=== PATIENT | male | born 1950 | race Caucasian/White ===

== ENCOUNTER 2017-03-09 00:52 | Inpatient (IN) ==
[2017-03-09 01:27] LABS: MANUAL DIFF NEEDED? NO
[2017-03-09 01:29] LABS: BASO% 0.2 % (0.0-0.8); EOS# 0.13 X1000 (0.0-0.7); HEMATOCRIT 50.5 % (42.0-52.0); HEMOGLOBIN 17.6 g/dL (14.0-18.0); IMM GRAN# 0.03 X1000 (0.0-0.04); IMM GRAN% 0.2 % (0.0-0.5); LYMPH# 1.26 X1000 (1.2-3.4); LYMPH% 9.3 % (20.5-51.1); MCH 32.3 PG (27-31); MCHC 34.9 g/dL (33-37); MCV 92.7 FL (81-99); MONO# 1.21 X1000 (0.11-0.59); MONO% 8.9 % (1.7-9.3); MPV 10.3 FL (7.4-10.4); NEUT% 80.4 % (42.2-75.2); PLT 247 X1000 (130-400); RBC 5.45 XMIL (4.7-6.1)
[2017-03-09] MEDS ORDERED: ZOFRAN IV ONE (01:33)
[2017-03-09] MEDS ORDERED: MORPHINE IV ONE ×2 (01:33→02:22)
[2017-03-09 01:42] LABS: AGAP 13; ALBUMIN 4.4 g/dL (3.5-5.0); ALKALINE PHOSPHATASE 76 U/L (32-122); AMYLASE 77 U/L (20-200); BUN 18 mg/dL (8-22); CALCIUM 9.3 mg/dL (8.8-10.2); CHLORIDE 100 mmol/L (98-107); COSMO 282; GOT 25 U/L (10-34); GPT 24 U/L (10-44); LIPASE 16 U/L (13-60); POTASSIUM 4.2 mmol/L (3.5-5.1); SODIUM 139 mmol/L (136-145); TCO2 26 mmol/L (25-35); TOTAL BILIRUBIN 0.41 mg/dL (0.20-1.00); TOTAL PROTEIN 7.3 g/dL (6.3-8.3)
[2017-03-09 02:06] LABS: URINE CULTURE NEEDED? NO; URINE MICRO REVIEW NEEDED? NO; URINE SOURCE CLEAN CATCH
[2017-03-09 02:08] LABS: BILIRUBIN URINE NEGATIVE (NEGATIVE); BLOOD URINE LARGE (NEGATIVE); COLOR YELLOW; GLUCOSE URINE NEGATIVE (NEGATIVE); LEUKOCYTES URINE NEGATIVE (NEGATIVE); NITRITE URINE NEGATIVE (NEGATIVE); PH URINE 5.5; PROTEIN URINE TRACE mg/dL (NEGATIVE); SP GRAVITY URINE 1.021; TURBIDITY URINE CLEAR (CLEAR); UROBILINOGEN URINE NORMAL (NORMAL)
[2017-03-09 02:10] LABS: UR EPITHELIAL CELLS <10 /HPF (<10); URINE BACTERIA NEGATIVE /HPF; URINE RBC TNTC /HPF (<10); URINE WBC <10 /HPF (<10)
--- NOTE | 2017-03-09 03:27 | PROVIDER DOCUMENTATION ---
This chart was entered by Alice Figueredo Scribe, acting as scribe for Rashad Valverde MD. HPI-Abdominal Pain/GI Problem - General Chief Complaint: Abdominal Pain Stated Complaint: ABD PAIN Time Seen by Provider: 03/09/17 01:12 Source: patient Allergies/Adverse Reactions: Patient Allergies Allergy/AdvReac Type Severity Reaction Status Date / Time No Known Allergies Allergy Verified 03/09/17 01:00 Home Medications: Home Medication List Medication Instructions Recorded Confirmed Last Taken Type NK [No Home Medications] 03/09/17 03/09/17 Unknown History - History of Present Illness-ABD Nature of Presenting Problems: 67 year old M presents to the ED with a cc of ABD pain and nausea with an onset of yesterday around 1600. Pt states that pain has since gotten worse. PT denies vomiting and diarrhea. PT states last bowel movement was on 03/07. PT has a hx of diverticulitis, ABD abscess, and bowel perforation. Abdominal Pain Onset Location: reports: LUQ, LLQ Pain Radiation: reports: RLQ, periumbilical Quality of Pain: reports: aching Severity in ED: reports: moderate Onset/Duration: reports: last night (1600) Timing: reports: still present, getting worse Associated Symptoms: reports: nausea Bruising or Bleeding Gums?: No Similar Symptoms Previously?: No Recently seen or treated by another doctor?: No Review of Systems - Adult - REVIEW OF SYSTEMS - ADULT Constitutional: denies: chills, fever Eyes: reports: no symptoms reported Ears, Nose, Mouth & Throat: reports: no symptoms reported Cardiovascular: denies: chest pain, palpitations Respiratory: denies: cough, shortness of breath Gastrointestinal: reports: abdominal pain, nausea. denies: diarrhea, vomiting Genitourinary: reports: no symptoms reported Musculoskeletal: reports: no symptoms reported Integumentary: reports: no symptoms reported Neurological: reports: no symptoms reported Psychiatric: reports: no symptoms reported Endocrine: reports: no symptoms reported Hematologic/Lymphatic: reports: no symptoms reported Allergic/Immunologic: reports: no symptoms reported All Other Systems: Reviewed and Negative Past History - Adult - PAST MEDICAL HISTORY-ADULT Review of Records: reports: Nursing Assessment Review, Medications Reviewed Major Childhood Illnesses: reports: denies history Cardiovascular: reports: HTN Respiratory: reports: COPD - PRIOR SURGERIES/PROCEDURES Surgical/Procedure History: reports: bowel surgery, back/neck, other (nasal surgery) - IMMUNIZATION STATUS Childhood Immunizations: See Nurse Assessment Flu Vaccine: See Nurse Assessment - SOCIAL HISTORY Smoking: non-smoker Substance Use: none/never Alcohol Use Frequency: never Physical Exam-General - PHYSICAL EXAM-ADULT Initial Vital Signs Reviewed: Yes - CONSTITUTIONAL General Appearance: alert, moderate distress - RESPIRATORY Respiratory: chest non-tender, normal breath sounds, wheezing (diffuse) - CARDIOVASCULAR Cardiovascular: normal peripheral pulses, other (split first heart sound) - GASTROINTESTINAL (ABDOMEN) Abdominal Exam: abnormal bowel sounds (borborygmi), distended, tenderness ( generalized) - SKIN Integumentary: diaphoresis - PSYCHIATRIC Psych/Mental Status: normal mood/affect, normal thought content, normal thought process, oriented x 3 Progress - PLAN OF CARE/RESULTS Progress/Plan/Lab Results: Vital Signs - 8 hr 03/09/17 00:55 Temperature 97.6 F Pulse Rate 95 H Respiratory Rate 22 Blood Pressure 178/112 O2 Sat by Pulse Oximetry 95 Orders Category Date Time Status Saline Loc DIRECTED Care 03/09/17 01:03 Active NPO Diet 03/09/17 01:03 Active AMYLASE [CHEM] Stat Lab 03/09/17 01:15 Ordered CBC WITH ELECTRONIC DIFF [HEME] Stat Lab 03/09/17 01:15 Ordered COMPREHENSIVE METABOLIC PANEL [CHEM] Stat Lab 03/09/17 01:15 Ordered LIPASE [CHEM] Stat Lab 03/09/17 01:15 Ordered URINALYSIS W/POSS RFLX CULT [URINALYSIS] Stat Lab 03/09/17 01:03 Uncollected Result Diagrams: 03/09/17 01:12 03/09/17 01:12 Departure - Departure Time of Disposition Decision: 03:26 DIAGNOSIS: Ureterolithiasis Disposition: ADMITTED INPATIENT 09 Certified Medical Emergency: Emergent Condition: Fair Referrals and Follow-Ups: Alejandro Holliday MD [Primary Care Provider] - This chart was documented by the indicated scribe, (Alice Figueredo Scribe) and accurately reflects the services I performed and decisions made by me, Rashad Valverde MD, as attested by the provider's signature.
[2017-03-09] MEDS ORDERED: LABETALOL IV ONE (04:48)
[2017-03-09] MEDS: NICODERM PATCH TD SCH ×2 (05:12→10:17)
[2017-03-09] MEDS ORDERED: DUONEB (A & A) INH PRN (05:33)
[2017-03-09] MEDS ORDERED: NS 1,000 ML IV ONE (05:33)
--- NOTE | 2017-03-09 05:33 | HISTORY AND PHYSICAL ---
PRIMARY CARE PHYSICIAN: Alejandro Holliday MD CHIEF COMPLAINT: Abdominal pain. HISTORY OF PRESENT ILLNESS: This is a 67-year-old male, who presented to the emergency room with complaint of left sided abdominal pain that had an onset around 4 p.m. yesterday which got worse and worse. He denied vomiting or diarrhea or chest pain. Denied any associated symptoms, such as dysuria, hematuria, home, hematochezia, or melena. States that his last bowel movement was on 03/07. He does have a history of diverticulitis and colon resection. A CT scan was obtained which showed 5 mm proximal left ureteral stone with mild hydronephrosis. Also noted increased gaseous distention consistent with ileus. He will be admitted to the medical floor for further evaluation and treatment. PAST MEDICAL HISTORY: 1. Hypertension. 2. Chronic obstructive pulmonary disease. 3. Diverticulitis. 4. Abdominal abscess. PREVIOUS SURGICAL HISTORY: 1. Bilateral foot arch repair. 2. Colon resection. 3. C-spine fusion. 4. Vein stripping for varicose veins. ALLERGIES: No known allergies. HOME MEDICATIONS: None. FAMILY HISTORY: One parent had a cerebrovascular accident, the other had cancer. Both in their 80s. SOCIAL HISTORY: One pack per day smoker. Lives at home with his . Denies alcohol or illicit drugs. REVIEW OF SYSTEMS: Fourteen point review of systems conducted with the patient. Pertinent positives listed above in the HPI. All other systems were reviewed and found to be negative. PHYSICAL EXAMINATION: VITAL SIGNS: Temperature 97.6 degrees, pulse 95, respirations 19, blood pressure 196/110, oxygen saturation 95% on room air. GENERAL: Pleasant 67-year-old male lying in the ER stretcher, in no acute distress. Answers all questions appropriately. HEENT: Head is atraumatic, normocephalic. Pupils equal, round, react to light. Extraocular eye movement intact. Sclerae is anicteric. Conjunctivae is pink. Oral mucosa is dry. NG tube noted in naris. NECK: Supple. Trachea is midline. No jugular venous distention. CARDIAC: S1-S2 appreciated. No murmurs, gallops, or rubs. Regular rhythm. LUNGS: Decreased bilaterally. Mild expiratory wheezing noted throughout the air lewis. No rhonchi, no rales. Symmetrical rise and fall with respirations. ABDOMEN: Soft, somewhat distended. Hyperactive bowel sounds in all 4 quadrants. Mildly tender to palpation. No pulsatile mass. No organomegaly. EXTREMITIES: No clubbing, cyanosis, or edema. SKIN: Warm, dry, and intact. No acute lesions or rash. BACK: Left sided costovertebral angle tenderness. NEUROLOGICAL: Alert and oriented x3. Cranial nerves 2-12 grossly intact. DIAGNOSTIC DATA: 1. CT of the abdomen showed 5 mm proximal left ureteral stone with mild hydronephrosis, as well as an ileus. WBC 13.62, hemoglobin 17.6, hematocrit 50.5, platelet count 247,000. Sodium 139, potassium 4.2, chloride 100, carbon dioxide 26. BUN 18, creatinine 0.9. Glucose 148. Urine large amount of blood, too numerous to count RBCs. ASSESSMENT AND PLAN: 1. A 5 mm proximal stone in the ureter with mild hydronephrosis. Will give IV pain medication and IV normal saline at 100 mL an hour. 2. Ileus. Hold patient NPO. We will give IV pain medicine, IV fluid resuscitation. 3. Hypertension. Patient is not currently taking any medications for his high blood pressure. We will give labetalol 20 mg IV 1 time dose in the emergency room. Continue IV hydralazine 10 mg q.4 hours systolic blood pressure greater than 160. We will evaluate and start on p.o. medications when patient is able to take p.o. 4. Tobacco abuse. Smoking cessation was gone over with the patient. He does state that he wants to quit; however, he has not attempted. We will give 21 mg transdermal Kwesi-Derm patch daily. 5. Chronic obstructive pulmonary disease. The patient is not in exacerbation. Will add DuoNeb's every 2 hours p.r.n. for wheezing. Further recommendations per patient's clinical course. Dictated by RINKU Schneider for Garth Dukes MD cc: RINKU Schneider MD
[2017-03-09] MEDS: PROTONIX IV SCH (06:39)
[2017-03-09] MEDS: SODIUM CHLORIDE 0.9% INJ SCH (06:39)
--- NOTE | 2017-03-09 07:27 | Diag Imaging Result Document ---
PROCEDURE NAME: CT ABD/PELVIS W/ IV CONT ONLY - 03/09/2017 CT ABDOMEN AND PELVIS WITH INTRAVENOUS CONTRAST: A CT dose reduction protocol was used. COMPARISON: 05/27/2013. FINDINGS: There is an obstructing 7 mm left proximal ureter stone. There is moderate left hydronephrosis with slight delay in renal functioning. There are several renal stones bilaterally, otherwise, measuring up to 5 mm. More on the left than the right. There appears to be numerous peripelvic cysts bilaterally. No bowel obstruction or inflammation. There are a few scattered sigmoid colon diverticula. No free air or free fluid. Urinary bladder, prostate, and rectum are normal. The lung bases are clear. Moderate degenerative changes of the thoracolumbar spine. No acute bony lesions. IMPRESSION: Obstructing left proximal ureter stone measuring 7 mm. Moderate left hydronephrosis and delay in renal functioning. Bilateral nephrolithiasis otherwise. MTDD
--- NOTE | 2017-03-09 07:28 | Diag Imaging Result Document ---
PROCEDURE NAME: CHEST/ABD TUBE PLACEMENT - 03/09/2017 AP PORTABLE CHEST AND ABDOMEN AT 0305 HOURS: For NG tube placement. FINDINGS: There is an NG tube with its tip in the fundus of the stomach. Tip in the fundus of the stomach. There is gas and stool in the visualized colon. There is some gaseous dilatation of small bowel loops in the upper abdomen. There is atelectasis over the left base. IMPRESSION: NG tube in the stomach.
--- NOTE | 2017-03-09 07:34 | Diag Imaging Result Document ---
PROCEDURE NAME: CHEST-PORTABLE - 03/09/2017 AP PORTABLE CHEST ERECT AT 0145 HOURS: FINDINGS: There is atelectasis over the left base. There are no previous chest radiographs; however, there were some fibrotic changes in the left base on the CT scan of 05/27/2013. Some of this may be fibrotic therefore. Otherwise, the lungs are clear and the heart and pulmonary vascularity are within normal limits. IMPRESSION: Atelectasis versus fibrosis, left lower lobe.
[2017-03-09] MEDS: MORPHINE IV PRN ×4 (10:03→22:24)
--- NOTE | 2017-03-09 17:37 | Diag Imaging Result Document ---
PROCEDURE NAME: CHEST/ABD TUBE PLACEMENT - 03/09/2017 PORTABLE CHEST/ABDOMEN: COMPARISON: Compared to study performed earlier in the day. FINDINGS: The nasogastric tube has been pulled back. However, it still overlies the stomach. There is at least 5 cm within the stomach.
[2017-03-09] MEDS: ZOFRAN IV PRN (22:24)
[2017-03-10] MEDS: SODIUM CHLORIDE 0.9% INJ SCH (05:21)
[2017-03-10] MEDS: MORPHINE IV PRN (05:22)
[2017-03-10] MEDS: ZOFRAN IV PRN ×2 (05:22→17:20)
[2017-03-10] MEDS: PROTONIX IV SCH (05:22)
[2017-03-10] MEDS: APRESOLINE IV PRN ×2 (06:06→21:00)
[2017-03-10 06:45] LABS: MANUAL DIFF NEEDED? NO
[2017-03-10 06:51] LABS: BASO% 0.2 % (0.0-0.8); EOS# 0.03 X1000 (0.0-0.7); EOS% 0.2 % (0.0-10.0); HEMATOCRIT 49.7 % (42.0-52.0); HEMOGLOBIN 16.6 g/dL (14.0-18.0); IMM GRAN# 0.02 X1000 (0.0-0.04); IMM GRAN% 0.2 % (0.0-0.5); LYMPH# 0.84 X1000 (1.2-3.4); LYMPH% 6.4 % (20.5-51.1); MCHC 33.4 g/dL (33-37); MCV 95.9 FL (81-99); MONO# 1.55 X1000 (0.11-0.59); MONO% 11.8 % (1.7-9.3); MPV 10.1 FL (7.4-10.4); NEUT% 81.2 % (42.2-75.2); PLT 207 X1000 (130-400); RBC 5.18 XMIL (4.7-6.1)
[2017-03-10 07:09] LABS: AGAP 15; BUN 22 mg/dL (8-22); CALCIUM 9.3 mg/dL (8.8-10.2); CHLORIDE 101 mmol/L (98-107); COSMO 290; POTASSIUM 4.3 mmol/L (3.5-5.1); SODIUM 143 mmol/L (136-145); TCO2 27 mmol/L (25-35)
[2017-03-10] MEDS: NICODERM PATCH TD SCH (09:10)
--- NOTE | 2017-03-10 11:04 | Diag Imaging Result Document ---
PROCEDURE NAME: US RENAL 2 (RETROPER) COMPLETE - 03/10/2017 RENAL ULTRASOUND: FINDINGS: The right kidney measures 7.2 x 5.5 x 5.6 cm. Normal renal echogenicity and cortical thickness. No renal stone or hydronephrosis. No renal mass. The left kidney measures 12.2 x 5.3 x 7.0 cm. Normal renal echogenicity and cortical thickness. No renal stone or hydronephrosis. No renal mass. The urinary bladder is moderately distended and appears normal. IMPRESSION: Normal renal ultrasound.
--- NOTE | 2017-03-10 12:41 | Diag Imaging Result Document ---
PROCEDURE NAME: ABDOMEN FLAT/UPRIGHT - 03/10/2017 SUPINE AND UPRIGHT ABDOMEN TWO VIEWS: COMPARISON: 03/09/2017. FINDINGS: A nasogastric tube overlies the stomach. There is stool throughout the colon. No organomegaly. There are several pelvic calcifications. IMPRESSION: Constipation.
[2017-03-10] MEDS ORDERED: GOLYTELY PO ONE (13:35)
[2017-03-10] MEDS: NS 1,000 ML IV SCH ×2 (13:50→23:35)
--- NOTE | 2017-03-10 14:18 | PROGRESS NOTE ---
DATE: 03/10/2017 SUBJECTIVE: Patient reports feeling fine. Reports mild pain in the right flank. Denies any fever, chills. He reports that he has passed 1 kidney stone last night. Pain is intermittent but definitely better in comparing with yesterday. OBJECTIVE: Vital Signs: Temperature 98.6 degrees, heart rate 93, respiratory rate 18, blood pressure 179/75, O2 saturation 92% on 2 L nasal cannula. General Examination: This is a 67-year- old male lying in bed in no acute distress. HEENT: Head is normocephalic, atraumatic. Anicteric sclerae and pale conjunctivae. Mucous membranes moist. Neck: Supple. No JVD noted. No carotid bruits. No lymphadenopathy. No thyromegaly. Cardiovascular: S1, S2 heard. No murmurs, gallops, or rubs. Regular rate and rhythm. Respiratory: Clear bilaterally to auscultation. No work of breathing or using accessory muscles. Abdomen: Soft , a little bit distended but nontender to palpation. Bowel sounds present. No organomegaly. Extremities: No clubbing, cyanosis, edema. Peripheral pulses present in both legs. Neurological: Patient alert, oriented x3. Able to move 4 extremities. Cranial nerves 2 though 12 grossly normal. LABORATORY DATA: Reviewed. ASSESSMENT AND PLAN: 1. Mild hydronephrosis secondary to kidney stone. Patient has report he has passed 1 kidney stone but in CT scan it shows multiple kidney stones. In any case we have repeated a renal ultrasound which did not show any hydronephrosis. At this point we are going to continue with aggressive fluid resuscitation and see we can help remove more stones. 2. Ileus. Actually although in the H and P has been documented ileus the final report from CT scan did not show any. In any case I have ordered abdominal x-ray which of course did not show any ileus and shows some constipation. I ordered to remove NG tube and will provide GoLYTELY orally until he starts moving his bowels. Will start also clear liquid diet and will advance diet as tolerated. 3. Hypertension. Blood pressure is getting high in the range of 170, 190 so we are going to start amlodipine 5 mg 1 tablet p.o. b.i.d. and see how this patient does and of course continue with hydralazine IV p.r.n. 4. Tobacco abuse. Patient has been advised about stopping smoking. 5. Chronic obstructive pulmonary disease. Patient is doing fine and not on any exacerbation. Will continue with home medications. cc: Eriberto Anand MD MTDD
[2017-03-10] MEDS: NORVASC PO SCH (20:58)
[2017-03-11] MEDS: SODIUM CHLORIDE 0.9% INJ SCH (05:11)
[2017-03-11] MEDS: PROTONIX IV SCH (05:11)
[2017-03-11 08:45] VITALS: BP 173/82
[2017-03-11] MEDS: NORVASC PO SCH (09:30)
[2017-03-11] MEDS: NICODERM PATCH TD SCH (09:30)
[2017-03-11] MEDS: NS 1,000 ML IV SCH (09:32)
--- NOTE | 2017-03-13 11:59 | DISCHARGE SUMMARY ---
ADMISSION DATE: 03/09/2017 DISCHARGE DATE: 03/11/2017 CONSULTATIONS: None. PERTINENT PROCEDURES: 1. Abdomen and pelvis CT showed obstructing left proximal ureteral stone measuring 7 mm. Moderate left hydronephrosis delay in renal functioning. Bilateral nephrolithiasis. 2. Renal ultrasound was normal. 3. Abdominal x-ray showed constipation. DISCHARGE DIAGNOSES: 1. Mild hydronephrosis secondary to kidney stone. Patient reported that he passed 1 kidney stone but the CT scan showed multiple stones. Follow up renal ultrasound did not show any hydronephrosis. Patient received aggressive fluid resuscitation. Stable. 2. Ileus. That was ruled out. Just showed constipation. Final CT scan did not show any ileus. Follow up abdominal x-ray showed constipation. Patient was started on GoLYTELY until results and started on a clear liquid diet and was advanced as tolerated. Stable. 3. Hypertension, uncontrolled. 4. Tobacco abuse. Patient has been educated daily against smoking cessation, as well as the means to quit. 5. Chronic obstructive pulmonary disease without exacerbation. HOSPITAL COURSE: Briefly, Mr. Garcia is a 67-year-old male who presented to the ED with complaint of left-sided abdominal pain that had an onset around 4 p.m. the day before his admission which got worse and worse. He denied vomiting, diarrhea, or chest pain. Denied any associated symptoms such as dysuria, hematuria, hematochezia, or melena. Stated his last bowel movement was 03/07. He does have a history of diverticulitis and a colon resection. CT scan obtained showed a proximal 5 mm proximal left ureteral stone and mild hydronephrosis. Also noted increased gaseous distention consistent with an ileus. Patient was admitted to the medical floor and was started on IV fluids, as well as IV pain medication. He was held NPO. He was given p.r.n. IV medications for his hypertension. The patient had a renal ultrasound done that was normal. Follow up abdominal x-ray to assess any ileus just showed constipation but no ileus. The patient's NG-tube was discontinued. He was started on a clear liquid diet and advance as tolerated. He was given GoLYTELY for his constipation. The patient was discharged on 03/11/2017. VITAL SIGNS: At time of his discharge, temperature was 98.3 degrees, heart rate 81, respirations 22, blood pressure is 173/82, O2 is 93%. DISCHARGE MEDICATIONS: Norvasc 5 mg p.o. b.i.d. and [place] 5, 1 each p.o. q.4 hours p.r.n. FOLLOWUP: He is to follow up with Dr. Crespo in 4-6 weeks as well as his primary care physician, Dr. Alejandro Holliday. The patient can return to the ED for any worsening of symptoms. DISCHARGE TIME: 33 minutes. Dictated by RINKU Tompkins for Eriberto Anand MD cc: Eriberto Anand MD MTDD
== END 2017-03-11 13:49 | disposition home or self-care (01) ==
LOC: ED 00:52 → SUATTDRO 05:15 → 3N 05:15
PROVIDERS: ATTEND Internal Medicine